=== PATIENT | male | born 1990 | race Caucasian/White ===

== ENCOUNTER 2022-05-10 09:27 | Emergency (ER) | payer OTHER, SELFPAY ==
[2022-05-10 09:34] VITALS: BP 119/72; PULSE 69; RESP 16; TEMP 36.3; O2SAT 100
--- NOTE | 2022-05-10 09:47 | ED.EAR ---
HPI - Ear Problem General Chief complaint: Ear Stated complaint: ears clogged Time Seen by Provider: 05/10/22 09:45 Source: patient Mode of arrival: ambulatory Limitations: no limitations History of Present Illness HPI Narrative: Mr. Sudarshan lu is a 31-year-old male patient presenting to clinic today with complaints of some dizziness and feeling as though his ears are clogged. He reports that he has had the symptoms for few nights now. He states that he feels more dizzy when he lays down flat and feels as though the room is spinning. Also feels as though his ears are full. He denies any fever, chills, runny nose, or congestion Related Data Home Medications Medication Instructions Recorded Confirmed levetiracetam 500 mg tablet mg PO 05/10/22 Allergies Allergy/AdvReac Type Severity Reaction Status Date / Time phenytoin [From Dilantin] Allergy Hives Verified 05/10/22 09:33 Review of Systems Review of Systems: Pertinent positives per HPI. Patient denies any fever, chills, rash, headache, visual changes, cough, runny nose, sore throat, shortness of breath, chest pain, palpitations, nausea, vomiting, diarrhea, constipation, abdominal pain, or any urinary issues. PMFSH Comments At the time of my signature, I reviewed and agree with the nursing past medical, surgical, social, and family history. There is no relevant family history pertinent to the patient complaint. Exam Narrative: General: Well-developed, well nourished, in no apparent distress Head: Normocephalic, atraumatic Eyes: Pupils equally round and reactive to light bilaterally, EOM intact, sclera and conjunctive clear, no discharge, lids normal Ears: TMs intact and clear with mild bulging, ear canals clear, no drainage, grossly hearing normal. Nose: Nares patent, clear discharge, no inflammation, no sinus tenderness. Mouth: Oropharynx without lesions or masses, good dentition, MMM. Neck: Supple, trachea midline, no enlargement of anterior or posterior cervical nodes, no thyroid masses or goiter palpable. Cardio: Regular rate and rhythm, s1 and s2 normal, no murmur appreciated. Resp: Clear to auscultation bilaterally anteriorly and posteriorly, no rhonchi, rales, wheezing or rubs Course Course Emergency Course: Portions of this record may have been created with voice recognition software. Level of Care: Express Care Visit Vital Signs Vital signs: Vital Signs Temperature 36.3 C L 05/10/22 09:34 Pulse Rate 69 05/10/22 09:34 Respiratory Rate 16 05/10/22 09:34 Blood Pressure 119/72 05/10/22 09:34 Pulse Oximetry 100 05/10/22 09:34 Oxygen Delivery Room Air 05/10/22 09:34 Temperature 36.3 C L 05/10/22 09:34 Pulse Rate 69 05/10/22 09:34 Respiratory Rate 16 05/10/22 09:34 Blood Pressure 119/72 05/10/22 09:34 Pulse Oximetry 100 05/10/22 09:34 Oxygen Delivery Room Air 05/10/22 09:34 Vital signs reviewed Medical Decision Making MDM Narrative Medical decision making narrative: At the time of visit patient is resting comfortably on the exam table. Vital signs are stable. I suspect the patient has mild eustachian tube dysfunction which may be causing his dizziness. Discussed using oral antihistamines and Flonase for symptoms. Supportive measures were discussed with the patient he voiced understanding of discharge instruction and agrees to treatment plan. Also recommended maybe getting his Keppra levels checked as he has recently had an increase and he is to see his PCP this afternoon for a checkup. He voiced understanding. Differential Diagnosis Differential Diagnosis: Otitis media, otitis externa, eustachian tube dysfunction, vertigo, upper respiratory infection Vital Signs Vital Signs: Vital Signs Temperature 36.3 C L 05/10/22 09:34 Pulse Rate 69 05/10/22 09:34 Respiratory Rate 16 05/10/22 09:34 Blood Pressure 119/72 05/10/22 09:34 Pulse Oximetry 100 05/10/22 09:34 Oxygen Delivery Ro
== END 2022-05-10 09:52 | disposition home or self-care (01) ==
PROVIDERS: Emergency Provider Nurse Practitioner Family
DX: R42 Dizziness and giddiness (principal); H69.83 Other specified disorders of Eustachian tube, bilateral; G40.909 Epilepsy, unspecified, not intractable, without status epilepticus
CPT/HCPCS: 99211; G0463

== ENCOUNTER 2023-04-15 08:12 | Emergency (ER) | payer OTHER, SELFPAY ==
--- NOTE | 2023-04-15 08:16 | ED.URI ---
HPI - URI/Sore Throat General Chief Complaint: Upper Respiratory Infection Stated Complaint: Strep symptoms Time Seen by Provider: 04/15/23 08:16 Source: patient, RN notes reviewed and old records reviewed Mode of arrival: ambulatory Limitations: no limitations History of Present Illness HPI Narrative: 32-year-old male presents to the [facility] with complaints of a sore throat since Monday, 3 days. Has taken [id number] products with some relief. Reports low-grade fevers of 99.5 through the last 2 nights. Related Data Home Medications Medication Instructions Recorded Confirmed levetiracetam 500 mg tablet mg PO 05/10/22 Allergies Allergy/AdvReac Type Severity Reaction Status Date / Time phenytoin [From Dilantin] Allergy Hives Verified 05/10/22 09:33 Review of Systems Review of Systems: All systems reviewed & are unremarkable except as noted in HPI and below Constitutional: Constitutional: Reports no additional constitutional complaints Eyes: Eyes: Reports no additional eye complaints ENT: Reports as per HPI and Reports sore throat Cardiovascular: Cardiovascular: Reports no additional cardiovascular complaints, Denies chest pain and Denies dyspnea Respiratory: Respiratory: Reports no additional respiratory complaints, Denies chest congestion, Denies cough and Denies dyspnea Gastrointestinal: Gastrointestinal: Reports no additional gastrointestinal complaints, Denies abdominal pain, Denies nausea and Denies vomiting Musculoskeletal: Musculoskeletal: Reports no additional musculoskeletal complaints Integumentary/Breasts: Skin/Breast: Reports system reviewed and no additional complaints, except as docu Neurologic: Reports system reviewed and no additional complaints, except as documented Psychiatric: Psychiatric: Reports no additional psychiatric complaints Allergic/Immunologic: Allergic/Immunologic: Reports no additional allergic/immunologic complaints [facility] Past Medical History Medical History (Updated 04/15/23 @ 08:35 by Mary Kate Liu APRN) Seizure Surgical History Surgical History (Updated 04/15/23 @ 08:32 by Mary Kate Liu APRN) History of tonsillectomy Social History Social History (Updated 04/15/23 @ 08:32 by Mary Kate Liu APRN) Living arrangements: with family Gender identity (if verbalized by the patient): Male Comments At the time of my signature, I reviewed and agree with the nursing past medical, surgical, social, and family history. There is no relevant family history pertinent to the patient complaint. Exam Const: General: cooperative, healthy appearing, comfortable, no acute distress, well developed, alert and well nourished Nutritional Appearance: well nourished Orientation/consciousness: patient oriented x3 Limitations: no limitations HENMT: Head: normal to inspection Ears: hearing grossly normal bilaterally and external ears normal Face/Nose/Sinus: Normal external nose present, Normal nares present, Normal nasal mucous membranes and turbinates present, normal facial exam and face symmetric Face and sinus: normal facial exam and face symmetric Mouth: Yes Normal oral and palatal mucosa present, Yes lip normal, Yes tongue normal and Yes moist mucous membranes Throat: posterior oropharynx normal, uvula midline, postnasal drainage and tonsils absent Eyes: General: appearance normal, both eyes and all related structures Alignment and Position: alignment normal Periorbital: periorbital findings normal Pupils: Equal, round and reactive pupils present EOM: EOMs intact bilaterally Neck: Neck: normal visual inspection, full ROM, no lymphadenopathy and no meningeal signs Chest: Chest palpation & inspection: normal inspection of the chest Resp: Effort & Inspection: normal respiratory effort and able to speak in complete sentences Auscultation: clear to auscultation bilaterally, no crackles, no rales, no rhonchi and no wheezes Cardio: Rate: regular rate Rhyt
[2023-04-15 08:20] VITALS: BP 128/86; PULSE 69; RESP 20; TEMP 36.5; O2SAT 99
== END 2023-04-15 08:40 | disposition home or self-care (01) ==
PROVIDERS: Emergency Provider Nurse Practitioner; PCP Internal Medicine
DX: J02.9 Acute pharyngitis, unspecified (principal); G40.909 Epilepsy, unspecified, not intractable, without status epilepticus
CPT/HCPCS: 87081; 87880; 99213; G0463

== ENCOUNTER 2025-01-14 11:59 | Emergency (ER) | payer OTHER, SELFPAY ==
[2025-01-14 12:00] VITALS: BP 130/92; PULSE 69; RESP 16; TEMP 36.6; O2SAT 100
--- OUTSIDE RECORDS SUMMARY | 2025-01-14 12:02 | XMS_ITS ---
Author Organization [facility] Address [address] [facility] [address] [place], [place] [id number] Care Team Providers Care Automotive Quality Engineer Name Role Phone Danyel Chu Primary Care Provider Unavailab Torito Alvares Unavailable [phone] Migration, Provider Unavailable Unavailable Allergies Allergen (clinical drug ingredient) Drug/Non Drug Allergy documented on EMR Reaction Allergy Type Onset Date Status phenytoin Dilantin Unknown Drug Allergy Active REASON FOR VISIT Multum To Medispan Conversion Encounter Medications Medication SIG (Take, Route, Frequency, Duration) Notes Start Date End Date Status Restasis 0.05 % 1 gtt in each affected eye every 12 hours Active Keppra *Please review a nd pick correct strength-formulation from Medispan options. If intended option is not shown, discontinue and re-order from Quick Search* Active Encounters Encounter Location Date Provider Diagnosis [facility] [address] [id number] 06/15/2024 Provider Migration Plan Of Treatment No Information Progress Notes * WILIAM, José Miguel DDOB:[birth year] (34 yo M)Acc No.[id number]:06/15/2024 Patient: José Miguel NOGUEIRA Provider: Kesha dahl Migration :1990 A ge:33 Y S ex:Male Date:06/15/2024 Address:[address] [place], [place] [id number] Pcp:Danyel Chu Subjective: * Chief Complaints: * 1 . Multum To Medispan Conversion Encounter. * Medical History: * Medications: T aking Keppra , Notes to Pharmacist: *Please review and pick correct strength-formulation from Medispan options. If intended option is not shown, discontinue and re-order from Quick Search*, Taking Restasis 0.05 % Emulsion 1 gtt in each affected eye every 12 hours * Allergies: D ilantin. Objective: * Vitals: * Physical Examination: Assessment: Plan: * Treatment: * Images: * Electronic signature of Prov ider Migration on 01/14/2025 at 12:02 PM CDT Sign off status: Pending * Provider: Kesha dahl Migration Date: 1 08/16/2023 Generated for Deja romeo/Eleonora/Elvinitting on: 0 01/14/2025 12:02 PM CDT
--- OUTSIDE RECORDS SUMMARY | 2025-01-14 12:02 | XMS_ITS | Encounter Summary ---
Author Organization [facility] Address [address] [place] [address] Care Team Providers Care Channel Rougher Name Role Phone Loni Whitten MD Primary Care Provider [phone] Encounter Details Date Type Department Care Team (Late st Contact Info) Description 02/19/2024 [employer] Message Enc [facility] Medical Group Multispecialty Care - [place] [address] [facility] [address] [place], [place] [id number] Kailee Diaz NP [address] [facility] [address] [place], [place] [id number] Follow up Social History Tobacco Use Types Packs/Day Years Used Date Smoking Tobacco: Never Smokeless Tobacco: Never Comments:counseled by Dr Marlee arenas Alcohol Use Standard Drinks/Week Comments Yes 3 (1 standard drink = 0.6 oz pure alcohol) 7 drinks per week. Mostly Whiskey and beer. PHQ-2 Answer Date Recorded Patient Health Questionnaire-2 Score 0 08/14/2023 Sex and Gender Information Value Date Recorded Sex Assigned at Male 08/16/2024 7:06 AM MILITARY PROFESSIONAL Legal Sex Male 2:26 PM MILITARY PROFESSIONAL Gender Identity Male 08/16/2024 7:06 AM MILITARY PROFESSIONAL Sexual Orientation Not on file documented as of this encounter Plan of Treatment Not on file documented as of this encounter Visit Diagnoses Not on filedocumented in this encounter Additional Health Concerns Assessment Noted Time PHQ-9 Depression Total Score: 0 08/14/19 24 4:23 PM MILITARY PROFESSIONAL documented as of this encounter Care Teams Channel Rougher Relationship Specialty [place] [address] [place] [address] [address] [place] [address] PCP - General INTERNAL MEDICINE 06/08/21 documented as of this encounter
--- OUTSIDE RECORDS SUMMARY | 2025-01-14 12:02 | XMS_ITS | Patient Health Record ---
Author Organization [facility] Address [address] [place], [place] [id number] Care Team Providers Care News Librarian Name Role Phone Vlad Danyel Primary Care Provider Unavailab Torito Alvares Unavailable [phone] Migration, Provider Unavailable Unavailable Allergies Allergen (clinical drug ingredient) Drug/Non Drug Allergy documented on EMR Reaction Allergy Type Onset Date Status phenytoin Dilantin Unknown Drug Allergy Active Reason For Referral No Information Medications Medication SIG (Take, Route, Frequency, Duration) Notes Start Date End Date Status Restasis 0.05 % 1 gtt in each affected eye every 12 hours Active Keppra *Please review a nd pick correct strength-formulation from Ondorean options. 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) Active confirmed Problem Chronic pharyngitis (J31.2) Active confirmed Problem Acute pharyngitis (048716854) Acute pharyngitis, unspecified (J02.9) Active confirmed Encounters Encounter Location Date Provider Diagnosis [facility] [address] [place], [place] [id number] 06/15/2024 Provider Migration Plan Of Treatment No Information Insurance Providers Payer Name Payer Address Payer Phone Subscriber Number Group Number Insured Name Patient Relationship to Insured Coverage Start Date Coverage End Date [facility] Claim [address] [place] [address] [id number] José Miguel Swain Self - patient is the insured Medical (General) History Medical History History ICD Code Pertinent Medical History:: Throat/Neck problems, seizure disorder Surgical History Surgery Date(Month/Year) tonsillectomy--ajd -
--- OUTSIDE RECORDS SUMMARY | 2025-01-14 12:02 | XMS_ITS | Clinical Summary ---
Author Organization [facility] Address [address] [facility] [place] [address] Care Team Providers Care Advertising Account Representative Name Role Phone Loni Whitten MD Primary Care Provider [phone] Allergies Active Allergy Reactions Criticality Noted Date Comments Phenytoin Sodium Extended Rash Medium 08/02/2017 Phenytoin Itching,Rash Medium 04/12/2013 Rash/hives Rash/hives Medications levETIRAcetam (KEPPRA) 500 mg tabletIndication s:Seizures, generalized convulsive (HCC) TAKE 1 TABLET TWICE A DAY 180 tablet 3 09/17/2024 Active Active Problems Problem Noted Date Diagnosed Date Irritability 05/10/2022 Seizures, 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 Medical History Medical History Date Comments Seizures (HCC) Epilepsy (HCC) Head injury Family History Relation Name Status Comments Father Alive Mother Alive Social History Tobacco Use Types Packs/Day Years Used Date Smoking Tobacco: Never Smokeless Tobacco: Never Tobacco Cessation:Counseling Given: Not Answered Alcohol Use Standard Drinks/Week Comments Yes 0 (1 standard drink = 0.6 oz pur e alcohol) Sex and Gender Information Value Date Recorded Sex Assigned at Not on file Legal Sex Male 7:09 PM ETIOLOGIST Gender Identity Not on file Sexual Orientation Not on file Obstetrics History Last Filed Vital Signs Vital Sign Reading Time Taken Comments Blood Pressure 126/74 07/30/2024 1:49 PM ETIOLOGIST Pulse 105 07/30/2024 1:49 PM ETIOLOGIST Temperature 36 C (96.8 F) 12/01/2023 2:33 PM CDT Respiratory Rate 16 07/30/2024 1:49 PM ETIOLOGIST Oxygen Saturation 98% 12/01/2023 2:33 PM CDT Inhaled Oxygen Concentration - - Weight 83.9 kg (185 lb) 07/30/2024 1:49 PM ETIOLOGIST Height 182.9 cm (6') 07/30/2024 1:49 PM ETIOLOGIST Body Mass Index 25.09 07/30/2024 1:49 PM ETIOLOGIST Plan of Treatment Health Maintenance Due Date Last Done Comments Depression Screening 1989 Hepatitis C Screening 1989 Varicella Vaccines (2 of 2 - 2-dose childhood series) 04/22/1995 01/28/1995 Regular Well Visit/Exam 18-64 2007 Influenza Vaccine (#1) 2025 , 05/09/2022, 06/08/2021, Additional history exists DTaP/Tdap/Td Vaccine (10 - Td or Tdap) 06/08/2031 06/08/2021, 04/23/2018, 08/29/2008, Additional history exists Hepatitis B Screening Completed 10/30/2013 , 09/25/2013, 08/21/2013, Additional history exists HPV Vaccines Aged Out No longer eligi ble based on patient's age to complete this topic Pneumococcal vaccine <65 Aged Out No longer eligible based on patient's age to complete this topic Insurance [facility] Care Teams Advertising Account Representative Relationship Specialty Start Date End Date Loni Whitten MD [address] [place] [address] PCP - General Internal Medicine 05/10/22
--- OUTSIDE RECORDS SUMMARY | 2025-01-14 12:02 | XMS_ITS | Encounter Summary ---
Author Organization [facility] Address [address] [facility] [place] [address] Care Team Providers Care Tower Operator Name Role Phone Danyel Chu DO Primary Care Provider [phone] Encounter Details Date Type Department Care Team (Late st Contact Info) Description 01/02/2017 SS Outpatient Visit EXTERNAL NON-[facility] DEPT Edgar Cruz DO [address] [place] [address] [address] [place] [address] Social History Tobacco Use Types Packs/Day Years Used Date Smoking Tobacco: Never Alcohol Use Standard Drinks/Week Comments No 0 (1 standard drink = 0.6 oz pur e alcohol) Sex and Gender Information Value Date Recorded Sex Assigned at Not on file Legal Sex Male 11:52 AM REGIONAL FORESTER Gender Identity Not on file Sexual Orientation Not on file documented as of this encounter Plan of Treatment Not on file documented as of this encounter Visit Diagnoses Not on filedocumented in this encounter Care Teams Tower Operator Relationship Specialty Start Date End Date Danyel Chu DO [address] [place] [id number] PCP - General 12/12/10 07/02/19 documented as of this encounter
--- OUTSIDE RECORDS SUMMARY | 2025-01-14 12:02 | XMS_ITS | Referral Summary ---
Author Organization [facility] Address [address] [facility] [place] [address] Care Team Providers Care Wig Comber Name Role Phone Loni Whitten MD Primary Care Provider [phone] Allergies Active Allergy Reactions Criticality Noted Date Comments Phenytoin Sodium Extended Rash Medium 08/02/2017 Phenytoin Itching,Rash Medium 04/12/2013 Rash/hives Rash/hives Medications levETIRAcetam (KEPPRA) 500 mg tabletIndication s:Seizures, generalized convulsive (HCC) TAKE 1 TABLET TWICE A DAY 180 tablet 3 09/17/2024 Active Active Problems Problem Noted Date Diagnosed Date Irritability 05/10/2022 Seizures, 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 Social History Tobacco Use Types Packs/Day Years Used Date Smoking Tobacco: Never Smokeless Tobacco: Never Tobacco Cessation:Counseling Given: Not Answered Alcohol Use Standard Drinks/Week Comments Yes 0 (1 standard drink = 0.6 oz pur e alcohol) Sex and Gender Information Value Date Recorded Sex Assigned at Not on file Legal Sex Male 7:09 PM SALES SERVICE EXECUTIVE Gender Identity Not on file Sexual Orientation Not on file Last Filed Vital Signs Vital Sign Reading Time Taken Comments Blood Pressure 126/74 07/30/2024 1:49 PM SALES SERVICE EXECUTIVE Pulse 105 07/30/2024 1:49 PM SALES SERVICE EXECUTIVE Temperature 36 C (96.8 F) 12/01/2023 2:33 PM CDT Respiratory Rate 16 07/30/2024 1:49 PM SALES SERVICE EXECUTIVE Oxygen Saturation 98% 12/01/2023 2:33 PM CDT Inhaled Oxygen Concentration - - Weight 83.9 kg (185 lb) 07/30/2024 1:49 PM SALES SERVICE EXECUTIVE Height 182.9 cm (6') 07/30/2024 1:49 PM SALES SERVICE EXECUTIVE Body Mass Index 25.09 07/30/2024 1:49 PM SALES SERVICE EXECUTIVE Plan of Treatment Not on file Insurance PENDING SALE TO [facility] Care Teams Wig Comber Relationship Specialty Start Date End Date Loni Whitten MD [address] [place], [place] [id number] PCP - General Internal Medicine 05/10/22
--- OUTSIDE RECORDS SUMMARY | 2025-01-14 12:02 | XMS_ITS | Encounter Summary ---
Author Organization [facility] Address [address] [place] [address] Care Team Providers Care Underwater Hunter Trapper Name Role Phone Loni Whitten MD Primary Care Provider [phone] Encounter Details Date Type Department Care Team (Late st Contact Info) Description 06/14/2021 [employer] Message Enc [facility] Medical Group Multispecialty Care - [place] [address] [place] [address] [address] [place] [address] [place] [address] [place] [address] [address] [place], [place] [id number] Keppra results Social History Tobacco Use Types Packs/Day Years Used Date Smoking Tobacco: Never Smokeless Tobacco: Never Comments:counseled by Dr Marlee arenas Alcohol Use Standard Drinks/Week Comments Yes 0 (1 standard drink = 0.6 oz pure alcohol) 7 drinks per week. Mostly Whiskey and beer. PHQ-2 Answer Date Recorded PHQ-2 Score - If the patient scores above 3, please move on to questions 3-9 0 06/08/2021 Sex and Gender Information Value Date Recorded Sex Assigned at Male 08/16/2024 7:06 AM COIL WINDER STRAP Legal Sex Male 2:26 PM COIL WINDER STRAP Gender Identity Male 08/16/2024 7:06 AM COIL WINDER STRAP Sexual Orientation Not on file COVID-19 Exposure Response Date Recorded In the last month, have you been in contact with someone who was confirmed or suspected to have Coronavirus / COVID-19? No / Unsure 06/08/2021 7:26 AM COIL WINDER STRAP documented as of this encounter Plan of Treatment Not on file documented as of this encounter Visit Diagnoses Not on filedocumented in this encounter Additional Health Concerns Infection Onset Date Last Indicated Resolved Time COVID-19 Rule Out 06/06/2022 06/06/2022 06/06/2022 9:42 AM COIL WINDER STRAP COVID-19 Rule Out 06/06/2022 06/06/2022 06/07/2022 12:34 AM COIL WINDER STRAP Assessment Noted Time PHQ-9 Depression Total Score: 0 06/08/20 21 8:07 AM COIL WINDER STRAP documented as of this encounter Care Teams Underwater Hunter Trapper Relationship Specialty Start Date End Date Loni Whitten MD [address] [address] PCP - General INTERNAL MEDICINE 06/08/21 documented as of this encounter
--- OUTSIDE RECORDS SUMMARY | 2025-01-14 12:02 | XMS_ITS | Clinical Summary ---
Author Organization [facility] Address [address] [place] [address] Care Team Providers Care Boat Painter Name Role Phone Loni Whitten MD Primary Care Provider [phone] Allergies Active Allergy Reactions Criticality Noted Date Comments Phenytoin Itching,Rash Medium 04/12/2013 Rash/hives Medications levETIRAcetam 500 MG tabletIndication s:Seizures, generalized convulsive ([facility]) Take one tablet in the morning and 2 tablets at bedtime 60 tablet 2 Active azelastine 0.1 % nasal sprayIndications :Seasonal allergic rhinitis, unspecified trigger 2 sprays by Nasal route 2 (two) times daily as needed for Rhinitis. Use in each nostril as directed 10 mL 3 4 Active Active Problems Problem Noted Date Diagnosed Date Seasonal allergic rhinitis, unspecified trigger 08/16/2024 Seizures, generalized convulsive ([facility] HHS/HC C) 08/17/2017 Immunizations Immunization Administration Dates Next Due Dt/Diptheria Tetanus 07/23/1994 Dtap (Acel-Immune) 07/23/1994, 1,02/03/1990,12/08,1989 Dtp 08/29/2008 Fluzone (IIV3, Trivalent, 0. 5 ML Prefilled Syringe) 08/16/2024 Fluzone 6 Months+ Quad (0.5 mL Prefilled Syringe) 06/08/2021 Hepatitis B (Generic: Adult) 07/30/1996,11/10/18 96,09/28/1995 Hib (Prohibit) 11/24/1990,08/28/1990,05/12/1990 Influenza Adult (Generic) 06/13/2023,04/2023,05/09/2022,04/12,04/19/2019,04/22/2018 MMR (MMRII) 12/20/1993,11/24/1990 MODERNA COVID-19 (PRODUCTION REPRODUCTION MANAGER MISSY SILVIA), MRNA, LNP-S, PF, 50 MCG/ 0.25 ML DOSE 02/07/2022 Meningococcal (Generic) 03/19/2005 Polio IPV (Ipol) 1989 Polio Opv (Generic) 07/23/1994, 1,02/03/1990,12/08,1989 Td (TDVAX) 08/23/1999 Tdap (Adacel) 06/08/2021 Tdap (Generic) 09/23/2005 Varicella (Varivax) 01/28/1995 Family History Medical History Relation Comments Diabetes Maternal Grandfather Heart Disease Maternal Grandfather Cancer Maternal Grandmother Heart Disease Maternal Grandmother Asthma Mother Relation Status Comments Maternal Grandfather Alive Maternal Grandmother Alive Mother Paternal Grandfather Paternal Grandmother Social History Tobacco Use Types Packs/Day Years Used Date Smoking Tobacco: Never Smokeless Tobacco: Never Tobacco Cessation:Counseling Given: No Comments:counseled by Dr Whitten Alcohol Use Standard Drinks/Week Comments Yes 3 (1 standard drink = 0.6 oz pure alcohol) 7 drinks per week. Mostly Whiskey and beer. PHQ-2 Answer Date Recorded Patient Health Questionnaire-2 Score 0 08/16/2024 Sex and Gender Information Value Date Recorded Sex Assigned at Male 08/16/2024 7:06 AM CUSTOM VAN CONVERTER Legal Sex Male 2:26 PM CUSTOM VAN CONVERTER Gender Identity Male 08/16/2024 7:06 AM CUSTOM VAN CONVERTER Sexual Orientation Not on file Last Filed Vital Signs Vital Sign Reading Time Taken Comments Blood Pressure 127/79 08/16/2024 7:06 AM CUSTOM VAN CONVERTER Pulse 57 08/16/2024 7:06 AM CUSTOM VAN CONVERTER Temperature 36.8 C (98.2 F) 08/16/2024 7:06 AM CUSTOM VAN CONVERTER Respiratory Rate 16 08/16/2024 7:06 AM CUSTOM VAN CONVERTER Oxygen Saturation 99% 08/16/2024 7:06 AM CUSTOM VAN CONVERTER Inhaled Oxygen Concentration - - Weight 87.1 kg (192 lb) 08/16/2024 7:06 AM CUSTOM VAN CONVERTER Height 182.9 cm (6') 08/16/2024 7:06 AM CUSTOM VAN CONVERTER Body Mass Index 26.04 08/16/2024 7:06 AM CUSTOM VAN CONVERTER Plan of Treatment Health Maintenance Due Date Last Done Comments Annual Physical 08/16/2025 08/16/2024, 08/03, 06/06/2022, Additional history exists COVID-19 Vaccine ( season) 2025 02/07/2022, 09/08/2020, 08/04/2020 Postponed from 03/03/2024 (Patient Refused) DTaP, Tdap and Td Vaccines (9 - Td or Tdap) 06/08/2031 06/08/2021, 08/29/2008, 09/23/2005, Additional history exists Hepatitis B Vaccines Completed 07/30/1996, 11/11/1995, 09/28/1995 Meningococcal Vaccine Aged Out 03/19/2005 No [email or web address] andi eligible based on patient's age to complete this topic Hepatitis C Completed 06/08/2021 PHQ-2 (Physician Reading) Completed 08/16/2024 HPV Vaccines Aged Out No longer eligi ble based on patient's age to complete this topic Meningococcal B Vaccine Aged Out No l onger eligible based on patient's age to complete this topic Pneumococcal Vaccine: Pediatrics (0 to 5 Years) and At-Risk Patients (6 to 49 Years) Aged Out No longer eligible based on patient's age to complete this topic RSV Immunizations Under 20 Months Aged Out No longer eligible based on patient's age to complete this topic Procedures Procedure Name Priority Date/Time Associated Diagnosis Comments HEPATITIS C ANTIBODY Routine 06/08/2021 8:27 AM CUSTOM VAN CONVERTER Annual physical exam General medical exam Encounter for medical examination to establish care Encounter for hepatitis C screening test for low risk patient from Last 3 Months or Most Recently Relevant to Health Maintenance Results * HEPATITIS C ANTIBODY (06/08/2021 8:27 AM CUSTOM VAN CONVERTER) HEPATITIS C AB NON-REACTI VE NON-REACT XIOMARA 06/08/2021 6:06 PM CUSTOM VAN CONVERTER [facility] Comment: ANTIBODIES TO HCV NOT DETECTED. DOES NOT EXCLUDE THE POSSIBILITY OF EXPOSURE TO HCV. 06/08/2021 8:27 AM CUSTOM VAN CONVERTER Loni Whitten MD LABORATORY Final Result [facility] [address] [place] [address], [id number] from Last 3 Months or Most Recently Relevant to Health Maintenance Insurance [facility] Care Teams Boat Painter Relationship Specialty Start Date End Date Loni Whitten MD [address] [facility] [address] [place] [address] PCP - General INTERNAL MEDICINE 06/08/21
--- OUTSIDE RECORDS SUMMARY | 2025-01-14 12:02 | XMS_ITS | Clinical Summary ---
Author Organization [facility] Address [address] [place] [address] Care Team Providers Care Lithograph Printer Name Role Phone Unavailable Primary Care Provider Unavailabl e Source Comments [facility] [employer]non-owned Affiliates and Associated Physician Practices is amultiple site organization consisting of ambulatory clinics and hospital sitesin [place], [place], [place] and [place]. This disclosure is being madepursuant to the Care Everywhere program and may not contain all information available regarding this patient. Last updated 18.[facility] [employer] Allergies Active Allergy Reactions Criticality Noted Date Comments Phenytoin 04/12/2013 Rash/hives Medications * Be aware that medications may not be up to date on this document. Alwaysverify current medications with the patient. levETIRAcetam (KEPPRA) 500 MG tablet Take 1 tablet by mouth 2 times daily 60 tablet 2 07/14/2017 Active Active Problems Problem Noted Date Diagnosed Date Seizure disorder 04/12/2013 Overview (04/12/2013): One generalized seizure On [address] Immunizations Immunization Administration Dates Next Due DPT 08/29/2008 DT 07/23/1994 DTaP VACCINE IM (6wk-6yrs) 07/23/1994,,02/03/1990,1989,09/30 HIB BOOSTER 11/24/1990,08/28/1990,05/12/1990 MENINGOCOCAL MENINGITIS 03/19/2005 MMR 12/20/1993,11/24/1990 POLIO IPV 07/23/1994, 1,02/03/1990,1989,09/30 VARICELLA 01/28/1995 Social History Tobacco Use Types Packs/Day Years Used Date Smoking Tobacco: Never Smokeless Tobacco: Never Alcohol Use Standard Drinks/Week Comments No 0 (1 standard drink = 0.6 oz pur e alcohol) Sex and Gender Information Value Date Recorded Sex Assigned at Not on file Legal Sex Male 11:52 AM PRESS ASSISTANT Gender Identity Not on file Sexual Orientation Not on file Last Filed Vital Signs Vital Sign Reading Time Taken Comments Blood Pressure 104/64 10/13/2017 9:47 AM CDT Pulse 76 10/13/2017 9:47 AM CDT Temperature 36.5 C (97.7 F) 04/12/2013 10:11 AM CDT Respiratory Rate 25 12/13/2010 3:00 AM CDT Oxygen Saturation 98% 12/13/2010 3:00 AM CDT Inhaled Oxygen Concentration - - Weight 80.3 kg (177 lb) 10/13/2017 9:47 AM CDT Height 182.9 cm (6') 10/13/2017 9:47 AM CDT Body Mass Index 24.01 10/13/2017 9:47 AM CDT Plan of Treatment Health Maintenance Due Date Last Done Comments HIV SCREENING 2004 HEPATITIS C SCREENING 07/30/2007 HEPATITIS B VACCINE (1 of 3 - 19+ 3-dose series) 2008 HPV VACCINE (1 - 3-dose SCDM series) 2016 DTAP/TDAP/TD VACCINES (7 - Tdap) 08/29/2018 08/29/2008, 07/23/1994, 07/23/1994, Additional history exists COVID-19 VACCINE ( - 2023- season) 2024 DEPRESSION SCREENING 07/03/2024 INFLUENZA VACCINE (#1) 2025 ZOSTER VACCINE (1 of 2) 2039 HIB VACCINE Completed 11/24/1990, 08/04, 05/12/1990 MENINGOCOCCAL GROUPS A/C/Y/W VACCINE Aged Out 03/19/2005 No longer eligible based on patient's age to complete this topic MENINGOCOCCAL (Group B) VACCINE SHARED DECISION-MAKING Aged Out No longer eligible based on patient's age to complete this topic PNEUMOCOCCAL VACCINE Aged Out No long er eligible based on patient's age to complete this topic Insurance [employer]ET[employer] Advance Directives Documents on File Type Date Recorded Patient Dsp Engineer Expl anation Adv Directive/Living Will/POA 06/11/2009
[2025-01-14] MEDS: TETANUS,DIPHTHERIA,AC PERTUSSIS ADULT (0.5 ML) BOOSTRIX IM (12:34)
--- OUTSIDE RECORDS SUMMARY | 2025-01-14 12:51 | XMS_ITS | Clinical Summary ---
Author Organization [facility] Address [address] [place] [address] Care Team Providers Care Snake Charmer Name Role Phone Unavailable Primary Care Provider Unavailabl e Source Comments [facility] [employer],non-owned Affiliates and Associated Physician Practices is amultiple site organization consisting of ambulatory clinics and hospital sitesin [place], [place], [place] and [place]. This disclosure is being madepursuant to the Care Everywhere program and may not contain all information available regarding this patient. Last updated 18.[facility] [employer] Allergies Active Allergy Reactions Criticality Noted Date [...] on file Legal Sex Male 11:52 AM CHECK SCALER Gender Identity Not on file Sexual Orientation [...] Documents on File Type Date Recorded Patient Guard Range Expl anation Adv Directive/Living Will/POA 06/11/2009
--- OUTSIDE RECORDS SUMMARY | 2025-01-14 12:51 | XMS_ITS | Encounter Summary ---
Author Organization [facility] Address [address] [place] [address] Care Team Providers Care Patient Care Manager Name Role Phone Loni Whitten MD Primary Care Provider [phone] Encounter Details Date Type Department Care Team (Late st Contact Info) Description 06/14/2021 [employer] [place] Message Enc [facility] Multispecialty Care - [place] [address] [place] [address] [address] [place] [address] [place] [address] [place] [address] [address] [place], [place] [id number] Keppra results Social History Tobacco Use Types [...] Sex Assigned at Male 08/16/2024 7:06 AM WIRELESS TEAM MEMBER Legal Sex Male 2:26 PM WIRELESS TEAM MEMBER Gender Identity Male 08/16/2024 7:06 AM WIRELESS TEAM MEMBER Sexual Orientation Not on file COVID-19 Exposure Response Date Recorded In the last month, have you been in contact with someone who was confirmed or suspected to have Coronavirus / COVID-19? No / Unsure 06/08/2021 7:26 AM WIRELESS TEAM MEMBER documented as of this encounter Plan of Treatment Not on file documented as of this encounter Visit Diagnoses Not on filedocumented in this encounter Additional Health Concerns Infection Onset Date Last Indicated Resolved Time COVID-19 Rule Out 06/06/2022 06/06/2022 06/06/2022 9:42 AM WIRELESS TEAM MEMBER COVID-19 Rule Out 06/06/2022 06/06/2022 06/07/2022 12:34 AM WIRELESS TEAM MEMBER Assessment Noted Time PHQ-9 Depression Total Score: 0 06/08/20 21 8:07 AM WIRELESS TEAM MEMBER documented as of this encounter Care Teams Patient Care Manager Relationship Specialty Start Date End Date Loni Whitten MD [address] [address] PCP - General INTERNAL MEDICINE 06/08/21 documented as of this encounter
--- OUTSIDE RECORDS SUMMARY | 2025-01-14 12:51 | XMS_ITS | Encounter Summary ---
Author Organization [facility] Address [address] [facility] [place] [address] Care Team Providers Care Machine Tool Electrician Name Role Phone Danyel Chu DO Primary Care Provider [phone] Encounter Details Date Type Department Care Team (Late st Contact Info) Description 01/02/2017 [facility] Outpatient Visit EXTERNAL NON[facility] Edgar Cruz DO [address] [place] [address] [address] [place] [address] Social History Tobacco Use Types Packs/Day Years Used Date Smoking Tobacco: Never Alcohol Use Standard Drinks/Week Comments No 0 (1 standard drink = 0.6 oz pur e alcohol) Sex and Gender Information Value Date Recorded Sex Assigned at Not on file Legal Sex Male 11:52 AM RANGE MANAGEMENT SPECIALIST Gender Identity Not on file Sexual Orientation Not on file documented as of this encounter Plan of Treatment Not on file documented as of this encounter Visit Diagnoses Not on filedocumented in this encounter Care Teams Machine Tool Electrician Relationship Specialty Start Date End Date Danyel Chu DO [address] [place] [id number] PCP - General 12/12/10 07/02/19 documented as of this encounter
--- OUTSIDE RECORDS SUMMARY | 2025-01-14 12:51 | XMS_ITS | Clinical Summary ---
Author Organization [facility] Address [address] [place] [address] Care Team Providers Care Aesthetician Name Role Phone Loni Whitten MD Primary Care Provider [phone] Allergies Active Allergy Reactions Criticality Noted Date [...] on file Legal Sex Male 7:09 PM KNOWLEDGE ANALYST Gender Identity Not on file Sexual Orientation Not on file Obstetrics History Last Filed Vital Signs Vital Sign Reading Time Taken Comments Blood Pressure 126/74 07/30/2024 1:49 PM KNOWLEDGE ANALYST Pulse 105 07/30/2024 1:49 PM KNOWLEDGE ANALYST Temperature 36 C (96.8 F) 12/01/2023 2:33 PM CDT Respiratory Rate 16 07/30/2024 1:49 PM KNOWLEDGE ANALYST Oxygen Saturation 98% 12/01/2023 2:33 PM CDT Inhaled Oxygen Concentration - - Weight 83.9 kg (185 lb) 07/30/2024 1:49 PM KNOWLEDGE ANALYST Height 182.9 cm (6') 07/30/2024 1:49 PM KNOWLEDGE ANALYST Body Mass Index 25.09 07/30/2024 1:49 PM KNOWLEDGE ANALYST Plan of Treatment Health Maintenance Due Date [...] patient's age to complete this topic Insurance [facility] Care Teams Aesthetician Relationship Specialty Start Date End Date Loni Whitten MD [address] [place] [address] PCP - General Internal Medicine 05/10/22
--- OUTSIDE RECORDS SUMMARY | 2025-01-14 12:51 | XMS_ITS | Encounter Summary ---
Author Organization [facility] Address [address] [place] [address] Care Team Providers Care Personal Care Aide Name Role Phone Loni Whitten MD Primary Care Provider Encounter Details Date Type Department Care Team (Late st Contact Info) Description 02/19/2024 [facility] Message Enc [facility] - [place] [address] [facility] [address] [place], [place] [id number] Kailee Diaz NP [address] [facility] [address] [place], [place] [id number] Follow up Social History Tobacco Use Types [...] Sex Assigned at Male 08/16/2024 7:06 AM DISPLAY DIRECTOR Legal Sex Male 2:26 PM DISPLAY DIRECTOR Gender Identity Male 08/16/2024 7:06 AM DISPLAY DIRECTOR Sexual Orientation Not on file documented as of this encounter Plan of Treatment Not on file documented as of this encounter Visit Diagnoses Not on filedocumented in this encounter Additional Health Concerns Assessment Noted Time PHQ-9 Depression Total Score: 0 08/14/19 24 4:23 PM DISPLAY DIRECTOR documented as of this encounter Care Teams Personal Care Aide Relationship Specialty [place] [address] [place] [address] [address] [place] [address] PCP - General INTERNAL MEDICINE 06/08/21 documented as of this encounter
--- OUTSIDE RECORDS SUMMARY | 2025-01-14 12:51 | XMS_ITS | Referral Summary ---
Author Organization [facility] Address [address] [place] [address] Care Team Providers Care Reproductive Surgeon Name Role Phone Loni Whitten MD Primary Care Provider [phone] Allergies Active Allergy Reactions Criticality Noted Date [...] on file Legal Sex Male 7:09 PM WEB ASSISTANT Gender Identity Not on file Sexual Orientation Not on file Last Filed Vital Signs Vital Sign Reading Time Taken Comments Blood Pressure 126/74 07/30/2024 1:49 PM WEB ASSISTANT Pulse 105 07/30/2024 1:49 PM WEB ASSISTANT Temperature 36 C (96.8 F) 12/01/2023 2:33 PM CDT Respiratory Rate 16 07/30/2024 1:49 PM WEB ASSISTANT Oxygen Saturation 98% 12/01/2023 2:33 PM CDT Inhaled Oxygen Concentration - - Weight 83.9 kg (185 lb) 07/30/2024 1:49 PM WEB ASSISTANT Height 182.9 cm (6') 07/30/2024 1:49 PM WEB ASSISTANT Body Mass Index 25.09 07/30/2024 1:49 PM WEB ASSISTANT Plan of Treatment Not on file Insurance [facility] Care Teams Reproductive Surgeon Relationship Specialty Start Date End Date Loni Whitten MD [address] [place], [place] [id number] PCP - General Internal Medicine 05/10/22
--- OUTSIDE RECORDS SUMMARY | 2025-01-14 12:51 | XMS_ITS | Clinical Summary ---
Author Organization [facility] Address [address] [place] [address] Care Team Providers Care Assembler Surgical Garment Name Role Phone Loni Whitten MD Primary Care Provider [phone] Allergies Active Allergy Reactions Criticality Noted Date Comments Phenytoin Itching,Rash Medium 04/12/2013 Rash/hives Medications levETIRAcetam 500 MG tabletIndication s:Seizures, generalized convulsive ([facility]) Take one tablet in the morning and [...] rhinitis, unspecified trigger 08/16/2024 Seizures, generalized convulsive ([facility] HHS/HC C) 08/17/2017 Immunizations Immunization Administration Dates Next Due Dt/Diptheria Tetanus 07/23/1994 Dtap (Acel-Immune) 07/23/1994, 1,02/03/1990,12/08,1989 Dtp 08/29/2008 Fluzone (IIV3, Trivalent, 0. 5 ML Prefilled Syringe) 08/16/2024 Fluzone 6 Months+ Quad (0.5 mL Prefilled Syringe) 06/08/2021 Hepatitis B (Generic: Adult) 07/30/1996,11/10/18 96,09/28/1995 Hib (Prohibit) 11/24/1990,08/28/1990,05/12/1990 Influenza Adult (Generic) 06/13/2023,04/2023,05/09/2022,04/12,04/19/2019,04/22/2018 MMR (MMRII) 12/20/1993,11/24/1990 MODERNA COVID-19 (COUNTER SALES PERSON MISSY SILVIA), MRNA, LNP-S, PF, 50 MCG/ [...] Sex Assigned at Male 08/16/2024 7:06 AM MICROFILMING DOCUMENT PREPARER Legal Sex Male 2:26 PM MICROFILMING DOCUMENT PREPARER Gender Identity Male 08/16/2024 7:06 AM MICROFILMING DOCUMENT PREPARER Sexual Orientation Not on file Last Filed Vital Signs Vital Sign Reading Time Taken Comments Blood Pressure 127/79 08/16/2024 7:06 AM MICROFILMING DOCUMENT PREPARER Pulse 57 08/16/2024 7:06 AM MICROFILMING DOCUMENT PREPARER Temperature 36.8 C (98.2 F) 08/16/2024 7:06 AM MICROFILMING DOCUMENT PREPARER Respiratory Rate 16 08/16/2024 7:06 AM MICROFILMING DOCUMENT PREPARER Oxygen Saturation 99% 08/16/2024 7:06 AM MICROFILMING DOCUMENT PREPARER Inhaled Oxygen Concentration - - Weight 87.1 kg (192 lb) 08/16/2024 7:06 AM MICROFILMING DOCUMENT PREPARER Height 182.9 cm (6') 08/16/2024 7:06 AM MICROFILMING DOCUMENT PREPARER Body Mass Index 26.04 08/16/2024 7:06 AM MICROFILMING DOCUMENT PREPARER Plan of Treatment Health Maintenance Due Date [...] topic Hepatitis C Completed 06/08/2021 PHQ-2 (Physician [place]) Completed 08/16/2024 HPV Vaccines Aged Out No [...] HEPATITIS C ANTIBODY Routine 06/08/2021 8:27 AM MICROFILMING DOCUMENT PREPARER Annual physical exam General medical exam Encounter for medical examination to establish care Encounter for hepatitis C screening test for low risk patient from Last 3 Months or Most Recently Relevant to Health Maintenance Results * HEPATITIS C ANTIBODY (06/08/2021 8:27 AM MICROFILMING DOCUMENT PREPARER) HEPATITIS C AB NON-REACTI VE NON-REACT XIOMARA 06/08/2021 6:06 PM MICROFILMING DOCUMENT PREPARER [facility] Comment: ANTIBODIES TO HCV NOT DETECTED. DOES NOT EXCLUDE THE POSSIBILITY OF EXPOSURE TO HCV. 06/08/2021 8:27 AM MICROFILMING DOCUMENT PREPARER Loni Whitten MD LABORATORY Final Result [facility] [address] [place] [address], [id number] from Last 3 Months or Most Recently Relevant to Health Maintenance Insurance [facility] Care Teams Assembler Surgical Garment Relationship Specialty Start Date End Date Loni Whitten MD [address] [facility] [address] [place] [address] PCP - General INTERNAL MEDICINE 06/08/21
--- NOTE | 2025-01-14 14:51 | ED_ITS ---
HPI - Animal Bite General Chief Complaint: Animal Bite Stated Complaint: Dog bite Time Seen by Provider: 01/14/25 12:08 History of Present Illness HPI narrative: Patient presenting here after being chased and bitten by a dog at a home of someone he was arresting. Related Data Home Medications ?Medication ?Instructions ?Recorded ?Confirmed ?Last Taken ?Type levetiracetam 500 mg tablet mg PO 05/10/22 Unknown History Allergies Allergy/AdvReac Type Severity Reaction Status Date / Time phenytoin (From Dilantin) Allergy Hives Verified 05/10/22 09:33 Review of Systems Review of Systems: All systems reviewed & are unremarkable except as noted in HPI and below PMFSH Past Medical History Medical History (Updated 01/14/25 @ 12:19 by Chastity Pineda MD) Seizure Surgical History Surgical History (Updated 04/15/23 @ 08:32 by Mary Kate Liu APRN) History of tonsillectomy Social History Social History (Updated 04/15/23 @ 08:32 by Mary Kate Liu APRN) Living arrangements: with family Gender identity (if verbalized by the patient): Male Exam Narrative: EXAMINATION OF ORGAN SYSTEMS/BODY AREAS: Constitutional: Vital signs per nursing GENERAL: [No acute distress, non-toxic appearing.] HEAD: Normal with no signs of head trauma. EYES: EOMI, conjunctiva normal ENT: Hearing grossly intact LUNGS: Nonlabored breathing. HEART: [Regular rate and rhythm] ABD: [Soft], [nontender to palpation] EXT: Normal range of motion SKIN: Superficial abrasion to right upper leg NEURO: [Alert and oriented x 3. No gross focal sensory or strength deficits.] PSYCH: Normal affect Course Vital Signs Vital signs: Vital Signs Temperature 97.8 F 01/14/25 12:00 Pulse Rate 69 01/14/25 12:00 Respiratory Rate 16 01/14/25 12:00 Blood Pressure 130/92 H 01/14/25 12:00 Pulse Oximetry 100 01/14/25 12:00 Temperature 97.8 F 01/14/25 12:00 Pulse Rate 69 01/14/25 12:00 Respiratory Rate 16 01/14/25 12:00 Blood Pressure 130/92 H 01/14/25 12:00 Pulse Oximetry 100 01/14/25 12:00 MDM - Animal Bite MDM Narrative Medical decision making narrative: Patient presents here after being bit by dog, the dog is domestic and has an flatbed owner operator, animal control involved, I will update tetanus shot, start him on antibiotics, his wound is cleaned here at bedside. Given return precautions in case he will be requiring rabies shots but given this is a domestic dog, will not be necessary at this time. Discharge Plan Discharge Clinical Impression: Dog bite Patient Disposition: Home Condition: Stable Instructions: Antibiotic Form, Animal Bite (ED) Additional Instructions: Please keep the bites clean and take the antibiotics to prevent an infection. Keep updated on the status of the animal; if there is concern for rabies, return to the ER. Patient Language: Vietnamese Prescriptions: New amoxicillin-pot clavulanate 875-125 mg tablet 1 tablet PO Q12H Qty: 10 0RF No Action levetiracetam 500 mg tablet PO Follow-up/Referrals: Maria Dolores,MD Loni [Primary Care Provider] -
== END 2025-01-14 13:13 | disposition home or self-care (01) ==
LOC: ANHED 12:45
PROVIDERS: Emergency Provider Emergency Medicine; PCP Internal Medicine
DX: S70.371A Other superficial bite of right thigh, initial encounter (principal); W54.0XXA Bitten by dog, initial encounter; Z23 Encounter for immunization
CPT/HCPCS: 90471; 90715; 99283; A9270